=== PATIENT | male | born 1980 | race Caucasian/White ===

== ENCOUNTER → 2019-08-19 | Outpatient (CLI) | payer BC ==
[2019-08-19 11:23] LABS: BUN/CREATININE RATIO 12; CARBON DIOXIDE 25 MMOL/L (21-32); CHLORIDE 102 MMOL/L (98-107); CREATININE SERUM 1.08 MG/DL (0.60-1.30); GFR ESTIMATED > 60; GLUCOSE 107 MG/DL (70-105); POTASSIUM 4.5 MMOL/L (3.6-5.0); SODIUM 141 MMOL/L (135-145)
[2019-08-19 11:24] LABS: ALANINE AMINOTRANSFERASE 35 U/L (0-55); ALBUMIN 4.5 GM/DL (3.2-4.5); ALKALINE PHOSPHATASE 65 U/L (40-136); BILIRUBIN,TOTAL 0.6 MG/DL (0.1-1.0); CALCIUM 9.2 MG/DL (8.5-10.1); TOTAL PROTEIN 7.6 GM/DL (6.4-8.2)
[2019-08-19 14:19] LABS: CHOLESTEROL 240 MG/DL (< 200); HDL CHOLESTEROL 31 MG/DL (40-60); TRIGLYCERIDES 328 MG/DL (<150); VLDL CHOLESTEROL 66 MG/DL (5-40)
[2019-08-19 14:40] LABS: FREE T4 (FREE THYROXINE) 0.85 NG/DL (0.70-1.48)
== END ==
LOC: LAB FS 10:19
PROVIDERS: ATTEND Family Medicine
DX: Z00.00 Encounter for general adult medical examination without abnormal findings (principal)
CPT/HCPCS: 36415; 80053; 80061; 84439; 84443

== ENCOUNTER → 2020-10-11 | Outpatient (CLI) | payer BC ==
[2020-10-11 12:07] LABS: ALANINE AMINOTRANSFERASE 35 U/L (0-55); ALBUMIN 4.6 GM/DL (3.2-4.5); ALKALINE PHOSPHATASE 66 U/L (40-136); BILIRUBIN,TOTAL 0.3 MG/DL (0.1-1.0); BUN/CREATININE RATIO 16; CALCIUM 9.4 MG/DL (8.5-10.1); CARBON DIOXIDE 25 MMOL/L (21-32); CHLORIDE 102 MMOL/L (98-107); CREATININE SERUM 1.02 MG/DL (0.60-1.30); GFR ESTIMATED > 60; GLUCOSE 109 MG/DL (70-105); POTASSIUM 4.1 MMOL/L (3.6-5.0); SODIUM 139 MMOL/L (135-145); TOTAL PROTEIN 7.6 GM/DL (6.4-8.2)
[2020-10-11 15:08] LABS: TRIGLYCERIDES 461 MG/DL (<150); VLDL CHOLESTEROL 92 MG/DL (5-40)
[2020-10-11 15:13] LABS: CHOLESTEROL 235 MG/DL (< 200); HDL CHOLESTEROL 31 MG/DL (40-60)
== END ==
LOC: LAB FS 09:08
PROVIDERS: ATTEND Family Medicine
DX: Z00.00 Encounter for general adult medical examination without abnormal findings (principal)
CPT/HCPCS: 36415; 80053; 80061

== ENCOUNTER → 2020-10-11 | Outpatient (CLI) | payer SELFPAY ==
--- NOTE | 2020-10-11 11:55 | Diagnostic Imaging Report ---
EXAMINATION: CT calcium scoring without contrast. TECHNIQUE: Multiple contiguous axial images were obtained through the chest without the use of intravenous contrast for purposes of calcium scoring. All CT scans use one or more of the following dose optimizing techniques: automated exposure control, MA and/or KvP adjustment based on patient size and exam type or iterative reconstruction. HISTORY: Near syncope COMPARISON: None available. FINDINGS: The calculated coronary artery calcium score is 7.2, placing the patient between the 75th and 90th percentiles.. There is no edema or pneumonia. No pleural effusion. No pneumothorax. No suspicious nodules. Heart size is normal. No pericardial effusion. Aorta is normal in caliber. There is no axillary or supraclavicular lymphadenopathy. There is no mediastinal lymphadenopathy. Limited views of the upper abdomen are unremarkable. There are no suspicious osseus lesions. IMPRESSION: 1. Calculated coronary artery calcium score of 7.2, placing the patient between the 75th and 90th percentile for his age. Dictated by: Dictated on workstation # [id number]
== END ==
LOC: RAD FS 09:45
PROVIDERS: ATTEND Family Medicine
DX: R55 Syncope and collapse (principal)
CPT/HCPCS: 75571

== ENCOUNTER 2021-04-07 11:42 | Emergency (ER) | payer BC ==
[~2021-04-07] VITALS: Ht 175.2 cm; Wt 120.0 kg
--- NOTE | 2021-04-07 12:02 | ED Cough/URI ---
General Chief Complaint: COVID19 Suspect/Confirmed Stated Complaint: FEVER;SOB Source: patient, family Exam Limitations: no limitations History of Present Illness Date Seen by Provider: Apr 07, 2021 Time Seen by Provider: 11:47 Initial Comments 41-year-old male otherwise healthy coming in due to cough, shortness of breath, body aches, chills, headache all starting about 11 days ago. Has been taking intermittent ibuprofen and Tylenol with the last dose of Tylenol this morning. This takes the edge off the headache but is still present. Has been on azithromycin, steroids, vitamin D, ivermectin for the past several days after a telehealth appointment. The concern is for Covid, and he has had a negative at home test but has not had a PCR test. He is not vaccinated and has not had Covid that he knows of prior to this. Oxygen saturation at home was 88 to 92% at rest. Denies any previous cardiac history, pulmonary history, does not smoke, or any other concerns. Allergies and Home Medications Allergies Coded Allergies: No Known Drug Allergies (Unverified , 04/07/21) Patient Home Medication List Home Medication List Reviewed: Yes Review of Systems Review of Systems Constitutional: chills, fever EENTM: No blurred vision Respiratory: cough, dyspnea on exertion; No hemoptysis; short of breath Cardiovascular: No chest pain, No syncope Gastrointestinal: No abdominal pain; diarrhea, nausea Genitourinary: no symptoms reported Musculoskeletal: no symptoms reported Skin: no symptoms reported Psychiatric/Neurological: Headache Hematologic/Lymphatic: No Symptoms Reported Immunological/Allergic: no symptoms reported All Other Systems Reviewed Negative Unless Noted: Yes Past Swnawjc-Obreed-Akatwv Hx Patient Social History Tobacco Use?: Yes (chewing tobacco) Substance use?: No Past Medical History Surgeries: Yes Vasectomy Physical Exam Vital Signs - First Documented 04/07/21 11:50 Temp 36.6 Pulse 99 Resp 18 B/P (MAP) 152/102 (119) Pulse Ox 97 O2 Delivery Room Air Capillary Refill : Height: '" Weight: lbs. oz. kg; BMI Method: General Appearance: WD/WN, no apparent distress HEENT: PERRL/EOMI, normal ENT inspection, pharynx normal Neck: non-tender, full range of motion, supple, normal inspection Respiratory: chest non-tender, no accessory muscle use, rales, other (slightly tachypneic) Cardiovascular: no edema, no murmur, tachycardia Gastrointestinal: normal bowel sounds, non tender, soft; No distended, No guarding, No rebound Extremities: normal range of motion, non-tender, normal inspection, no pedal edema, no calf tenderness, normal capillary refill Neurologic/Psychiatric: no motor/sensory deficits, alert, normal mood/affect Skin: normal color, warm/dry Lymphatic: no adenopathy Progress/Results/Core Measures Suspected Sepsis SIRS Temperature: Pulse: Respiratory Rate: Laboratory Tests 04/07/21 12:00: White Blood Count 7.4 Blood Pressure / Mean: Laboratory Tests 04/07/21 12:00: Creatinine 1.02, INR Comment 1.0, Platelet Count 320, Total Bilirubin 1.2H Results/Orders Lab Results Laboratory Tests Test 04/07/21 12:00 Range/Units White Blood Count 7.4 4.3-11.0 10^3/uL Red Blood Count 4.99 4.30-5.52 10^6/uL Hemoglobin 14.2 13.3-17.7 g/dL Hematocrit 41 40-54 % Mean Corpuscular Volume 81 80-99 fL Mean Corpuscular Hemoglobin 28 25-34 pg Mean Corpuscular Hemoglobin Concent 35 32-36 g/dL Red Cell Distribution Width 12.6 10.0-14.5 % Platelet Count 320 130-400 10^3/uL Mean Platelet Volume 9.7 9.0-12.2 fL Immature Granulocyte % (Auto) 0 % Neutrophils (%) (Auto) 87 H 42-75 % Lymphocytes (%) (Auto) 8 L 12-44 % Monocytes (%) (Auto) 5 0-12 % Eosinophils (%) (Auto) 0 0-10 % Basophils (%) (Auto) 0 0-10 % Neutrophils # (Auto) 6.4 1.8-7.8 X 10^3 Lymphocytes # (Auto) 0.6 L 1.0-4.0 X 10^3 Monocytes # (Auto) 0.3 0.0-1.0 X 10^3 Eosinophils # (Auto) 0.0 0.0-0.3 10^3/uL Basophils # (Auto) 0.0 0.0-0.1 10^3/uL Immature Granulocyte # (Auto) 0.0 0.0-0.1 10^3/uL Prothrombin Time 13.3 12.2-14.7 SEC INR Comment 1.0 0.8-1.4 Activated Partial Thromboplast Time 26 24-35 SEC D-Dimer 0.59 H 0.00-0.49 UG/ML Sodium Level 133 L 135-145 MMOL/L Potassium Level 4.0 3.6-5.0 MMOL/L Chloride Level 92 L 98-107 MMOL/L Carbon Dioxide Level 28 21-32 MMOL/L Anion Gap 13 5-14 MMOL/L Blood Urea Nitrogen 19 H 7-18 MG/DL Creatinine 1.02 0.60-1.30 MG/DL Estimat Glomerular Filtration Rate 80 BUN/Creatinine Ratio 19 Glucose Level 140 H 70-105 MG/DL Calcium Level 9.1 8.5-10.1 MG/DL Corrected Calcium 9.1 8.5-10.1 MG/DL Total Bilirubin 1.2 H 0.1-1.0 MG/DL Aspartate Amino Transf (AST/SGOT) 67 H 5-34 U/L Alanine Aminotransferase (ALT/SGPT) 80 H 0-55 U/L Alkaline Phosphatase 67 40-136 U/L Troponin I < 0.30 <0.30 NG/ML Total Protein 7.6 6.4-8.2 GM/DL Albumin 4.0 3.2-4.5 GM/DL Influenza Type A Antigen NEGATIVE NEGATIVE Influenza Type B Antigen NEGATIVE NEGATIVE My Orders Orders - CRICKET JAMA MD Ct Angio Chest W (04/07/21 11:58) Ct Head Wo (04/07/21 11:58) Cbc With Automated Diff (04/07/21 11:58) Comprehensive Metabolic Panel (04/07/21 11:58) Protime With Inr (04/07/21 11:58) Partial Thromboplastin Time (04/07/21 11:58) Troponin I Fs (04/07/21 11:58) Influenza A & B Antigens (04/07/21 11:58) Ed Iv/Invasive Line Start (04/07/21 11:58) Ekg Tracing (04/07/21 11:58) O2 (04/07/21 11:58) Monitor-Rhythm Ecg Trace Only (04/07/21 11:58) Fibrin Degradation Products (04/07/21 11:58) Covid 19 Inhouse Test (04/07/21 11:58) Ondansetron Injection (Zofran Injectio (04/07/21 12:15) Ketorolac Injection (Toradol Injection) (04/07/21 12:15) Lactated Ringers (Lr 1000 Ml Iv Solution (04/07/21 12:15) Chest 1 View Ap/Pa Only (04/07/21 12:06) BNP (04/07/21 12:00) Iohexol Injection (Omnipaque 350 Mg/Ml 1 (04/07/21 13:00) Received Contrast (Hold Metformin- Contr (04/07/21 13:00) Ns (Ivpb) (Sodium Chloride 0.9% Ivpb Bag (04/07/21 13:00) Manual Differential (04/07/21 12:00) Medications Given in ED Current Medications Medications Dose Ordered Sig/Abhay Route Start Time Stop Time Status Last Admin Dose Admin Iohexol 100 ml ONCE ONCE IV 04/07/21 13:00 04/07/21 13:01 DC 04/07/21 13:01 85 ML Ketorolac Tromethamine 15 mg ONCE ONCE IVP 04/07/21 12:15 04/07/21 12:16 DC 04/07/21 12:10 15 MG Ondansetron HCl 4 mg ONCE ONCE IVP 04/07/21 12:15 04/07/21 12:16 DC 04/07/21 12:10 4 MG Sodium Chloride 100 ml ONCE ONCE IV 04/07/21 13:00 04/07/21 13:01 DC 04/07/21 13:01 100 ML Vital Signs/I&O 04/07/21 04/07/21 11:50 11:50 Temp 36.6 Pulse 99 Resp 18 B/P (MAP) 152/102 (119) Pulse Ox 97 O2 Delivery Room Air Capillary Refill : Progress Note : Progress Note 41-year-old male coming in due to multiple infectious symptoms including cough, shortness of breath, headache, body aches. His oxygen stayed between 92 to 98% at rest. I personally ambulated the patient for greater than 1 minute and his oxygen stayed above 90% during that time. Portable chest x-ray with multifocal patchy opacities concerning for infection versus pulmonary edema. CTA chest with groundglass opacities more consistent with infection. No blood clots seen in no local focal area of consolidation that would be more concerning for bacterial pneumonia. Labs otherwise significant for negative troponin, relative lymphopenia, normal creatinine, mild transaminitis. Biggest concern would be for Covid. Test has been sent and is pending at this time. Given he is not hypoxic, I believe he is stable for discharge with outpatient follow-up. We will send him home with strict return precautions. ECG Initial ECG Impression Date: Apr 07, 2021 Initial ECG Impression Time: 12:04 Initial ECG Rate: 89 Initial ECG Rhythm: Normal Sinus Comment Narrow QRS, normal axis, no significant ST changes or T wave abnormalities, LVH Diagnostic Imaging Diagonstic Imaging: Xray (chest), CT (head and CTA chest) Comments [facility] [place], [place] NAME: JENNIEANIA Johan [facility] REC#: [id number] PT STATUS: REG ER : 1980 PHYSICIAN: CRICKET JAMA MD ADMIT DATE: 04/07/21/ER FS Draft Date of Exam:04/07/21 CHEST 1 VIEW AP/PA ONLY HISTORY: Shortness of breath, cough. COMPARISON: None. TECHNIQUE: Frontal view of the chest. FINDINGS: Lung volumes are mildly low. There are bilateral perihilar opacities and left basilar airspace opacities. There is no significant pleural effusion or pneumothorax. The cardiac silhouette is normal in size. IMPRESSION: 1. Bilateral perihilar and left basilar airspace opacities, may be due to edema or infection. Dictated on workstation # [id number] Dict: 04/07/21 1237 Trans: 04/07/21 1239 [id number] Interpreted by: RODRIGO LOVE MD Electronically signed by: [facility] [place], [place] NAME: JENNIEANIA Johan [facility] REC#: [id number] PT STATUS: REG ER : 1980 PHYSICIAN: CRICKET JAMA MD ADMIT DATE: 04/07/21/ER FS Draft Date of Exam:04/07/21 CT HEAD WO PROCEDURE: CT head without contrast. TECHNIQUE: Multiple contiguous axial images were obtained through the brain without the use of intravenous contrast. Auto Exposure Controls were utilized during the CT exam to meet ALARA standards for radiation dose reduction. INDICATION: Headache, tachycardia, shortness of breath, hypoxia COMPARISON: None FINDINGS: The ventricles and cortical sulci are age-appropriate. There is no midline shift or mass effect. No acute intracranial hemorrhage is seen. There is no CT evidence of acute territorial ischemia. The calvarium appears intact. There is mucosal thickening and a fluid level in the right maxillary sinus. IMPRESSION: 1. No acute intracranial hemorrhage or CT evidence of acute territorial ischemia. 2. Findings of right maxillary sinusitis. Dictated on workstation # [id number] Dict: 04/07/21 1307 Trans: 04/07/21 1310 [facility] [id number] Interpreted by: RODRIGO LOVE MD Electronically signed by: [facility]. [place], [place] NAME: ANIA SCHNEIDER [facility] REC#: [id number] PT STATUS: REG ER : 1980 PHYSICIAN: CRICKET JAMA MD ADMIT DATE: 04/07/21/ER FS Draft Date of Exam:04/07/21 CT ANGIO CHEST W PROCEDURE: CT angiography of the chest with contrast. TECHNIQUE: Multiple contiguous axial images were obtained through the chest after uneventful bolus administration of intravenous contrast. 3D reconstructed CTA MIP acquisitions were also performed. Auto Exposure Controls were utilized during the CT exam to meet ALARA standards for radiation dose reduction. INDICATION: Headache, shortness of breath, tachycardia, hypoxia, Covid symptoms. COMPARISON: None. FINDINGS: The pulmonary arteries are diagnostic to the proximal segmental level. There is motion artifact which results in suboptimal evaluation. No filling defects are seen to indicate a pulmonary embolus. There is no evidence of right heart strain. There is no pericardial effusion. There is no mediastinal adenopathy. There is no axillary adenopathy. There are a few mildly prominent hilar lymph nodes which are likely reactive. Patchy groundglass and airspace opacities are seen scattered throughout the lungs bilaterally. There is no pleural effusion or pneumothorax. No central endobronchial lesions are seen. There are mild degenerative changes in the spine. The imaged portions of the upper abdomen demonstrate no acute abnormality. A small splenule is noted. IMPRESSION: 1. No pulmonary embolus. 2. Multifocal groundglass and airspace opacities, consistent with infection. Dictated on workstation # [id number] Dict: 04/07/21 1308 Trans: 04/07/21 1313 [id number] Interpreted by: RODRIGO LOVE MD Electronically signed by: Departure Impression Primary Impression: Person under investigation for COVID-19 Additional Impression: Dyspnea Qualified Codes: R06.02 - Shortness of breath Disposition: HOME, SELF-CARE Condition: Stable Departure-Patient Inst. Decision time for Depature: 13:22 Referrals: HERLINDA DURAN MD (PCP/Family) Primary Care Physician Patient Instructions: COVID-19 ED Add. Discharge Instructions: You were seen in the emergency department due to feeling short of breath, having body aches, cough, and generally not feeling well. Fortunately your vitals have remained normal while in the emergency department being monitored (oxygen stayed above 90% even when moving around the room). We did a CT scan of your chest which fortunately was negative for any blood clot, but it does look like you have an infection from COVID in your lungs. We have sent in an inhaled steroid to your pharmacy. This does not look like a bacterial infection at this time and I do not believe another round of antibiotics would be helpful. I would fi shira your Z-Felix that you have been taking. If you begin feeling more short of breath, your oxygen gets in the 80s and stays in the 80s while at home, or have any other concerns then I would come back to the ER. Scripts Budesonide (Pulmicort Flexhaler) 180 Mcg Aer.pow.ba 360 MCG IH BID for 7 Days, #1 UNIT Prov: CRICKET JAMA MD 04/07/21 CRICKET JAMA MD Apr 07, 2021 12:02
[2021-04-07] MEDS ORDERED: LACTATED RINGERS 1,000 ML IV SCH (12:15)
[2021-04-07] MEDS ORDERED: KETOROLAC 30 MG/ML VIAL IVP ONE (12:15)
[2021-04-07] MEDS ORDERED: ONDANSETRON 4 MG/2 ML (SDV) Z0FRAN IVP ONE (12:15)
[2021-04-07 12:33] LABS: BASOPHILS % (AUTO) 0 % (0-10); EOSINOPHILS % (AUTO) 0 % (0-10); HEMATOCRIT 41 % (40-54); HEMOGLOBIN 14.2 g/dL (13.3-17.7); LYMPHOCYTES # (AUTO) 0.6 X 10^3 (1.0-4.0); LYMPHOCYTES % (AUTO) 8 % (12-44); MEAN CORPUSCULAR HEMOGLOBIN 28 pg (25-34); MEAN CORPUSCULAR HGB CONC 35 g/dL (32-36); MEAN CORPUSCULAR VOLUME 81 fL (80-99); MEAN PLATELET VOLUME 9.7 fL (9.0-12.2); MONOCYTES # (AUTO) 0.3 X 10^3 (0.0-1.0); MONOCYTES % (AUTO) 5 % (0-12); NEUTROPHILS # (AUTO) 6.4 X 10^3 (1.8-7.8); NEUTROPHILS % (AUTO) 87 % (42-75); PLATELET COUNT 320 10^3/uL (130-400); WHITE BLOOD COUNT 7.4 10^3/uL (4.3-11.0)
--- NOTE | 2021-04-07 12:40 | Diagnostic Imaging Report ---
HISTORY: Shortness of breath, cough. COMPARISON: None. TECHNIQUE: Frontal view of the chest. FINDINGS: Lung volumes are mildly low. There are bilateral perihilar opacities and left basilar airspace opacities. There is no significant pleural effusion or pneumothorax. The cardiac silhouette is normal in size. IMPRESSION: 1. Bilateral perihilar and left basilar airspace opacities, may be due to edema or infection. Dictated by: Dictated on workstation # [id number]
[2021-04-07 12:46] LABS: FIBRIN DEGRADATION PRODUCTS 0.59 UG/ML (0.00-0.49); PROTHROMBIN TIME PATIENT 13.3 SEC (12.2-14.7)
[2021-04-07 12:48] LABS: ALANINE AMINOTRANSFERASE 80 U/L (0-55); ALKALINE PHOSPHATASE 67 U/L (40-136); BILIRUBIN,TOTAL 1.2 MG/DL (0.1-1.0); BUN/CREATININE RATIO 19; CALCIUM 9.1 MG/DL (8.5-10.1); CARBON DIOXIDE 28 MMOL/L (21-32); CHLORIDE 92 MMOL/L (98-107); CREATININE SERUM 1.02 MG/DL (0.60-1.30); GFR ESTIMATED 80; GLUCOSE 140 MG/DL (70-105); SODIUM 133 MMOL/L (135-145); TOTAL PROTEIN 7.6 GM/DL (6.4-8.2)
[2021-04-07] MEDS ORDERED: IOHEXOL 350 MG/ML 100 ML (OMNIPAQUE 350) VIAL IV ONE (13:00)
[2021-04-07] MEDS ORDERED: HOLD METFORMIN - RECEIVED CONTRAST 20 ML VIAL IV SCH (13:00)
[2021-04-07] MEDS ORDERED: NS 100 ML (IVPB) BAG IV ONE (13:00)
--- NOTE | 2021-04-07 13:10 | Diagnostic Imaging Report ---
PROCEDURE: CT head without contrast. TECHNIQUE: Multiple contiguous axial images were obtained through the brain without the use of intravenous contrast. Auto Exposure Controls were utilized during the CT exam to meet ALARA standards for radiation dose reduction. INDICATION: Headache, tachycardia, shortness of breath, hypoxia COMPARISON: None FINDINGS: The ventricles and cortical sulci are age-appropriate. There is no midline shift or mass effect. No acute intracranial hemorrhage is seen. There is no CT evidence of acute territorial ischemia. The calvarium appears intact. There is mucosal thickening and a fluid level in the right maxillary sinus. IMPRESSION: 1. No acute intracranial hemorrhage or CT evidence of acute territorial ischemia. 2. Findings of right maxillary sinusitis. Dictated by: Dictated on workstation # [id number]
--- NOTE | 2021-04-07 13:14 | Diagnostic Imaging Report ---
PROCEDURE: CT angiography of the chest with contrast. TECHNIQUE: Multiple contiguous axial images were obtained through the chest after uneventful bolus administration of intravenous contrast. 3D reconstructed CTA MIP acquisitions were also performed. Auto Exposure Controls were utilized during the CT exam to meet ALARA standards for radiation dose reduction. INDICATION: Headache, shortness of breath, tachycardia, hypoxia, Covid symptoms. COMPARISON: None. FINDINGS: The pulmonary arteries are diagnostic to the proximal segmental level. There is motion artifact which results in suboptimal evaluation. No filling defects are seen to indicate a pulmonary embolus. There is no evidence of right heart strain. There is no pericardial effusion. There is no mediastinal adenopathy. There is no axillary adenopathy. There are a few mildly prominent hilar lymph nodes which are likely reactive. Patchy groundglass and airspace opacities are seen scattered throughout the lungs bilaterally. There is no pleural effusion or pneumothorax. No central endobronchial lesions are seen. There are mild degenerative changes in the spine. The imaged portions of the upper abdomen demonstrate no acute abnormality. A small splenule is noted. IMPRESSION: 1. No pulmonary embolus. 2. Multifocal groundglass and airspace opacities, consistent with infection. Dictated by: Dictated on workstation # [id number]
[2021-04-07 13:23] LABS: ATYPICAL LYMPHOCYTES 2 %; BAND NEUTROPHILS 7 %; LYMPHOCYTES % (MANUAL) 5 %; MONOCYTES % (MANUAL) 7 %; NEUTROPHILS % (MANUAL) 79 %; RBC MORPH NORMAL
[2021-04-07] MEDS ORDERED: BUDE180A IH (13:37)
[2021-04-07 13:44] VITALS: BP 144/78
== END 2021-04-07 13:45 | disposition home or self-care (01) ==
LOC: EDUNIT# 11:42 → ER FS 11:43
DX: U07.1 COVID-19 (principal); R06.00 Dyspnea, unspecified; R00.0 Tachycardia, unspecified; Z72.0 Tobacco use
CPT/HCPCS: 36415; 70450; 71045; 71275; 80053; 83880; 84484; 85007; 85025; 85027; 85379; 85610; 85730; 87636; 87804; 93005; 93041

== ENCOUNTER 2021-04-08 08:51 | Inpatient (IN) | payer BC ==
[~2021-04-08] VITALS: Ht 175 cm; Wt 106.9 kg
[~2021-04-08 08:51] MED LIST: BUDE180A IH
[2021-04-08 09:17] LABS: BASOPHILS % (AUTO) 0 % (0-10); EOSINOPHILS % (AUTO) 0 % (0-10); HEMATOCRIT 39 % (40-54); HEMOGLOBIN 13.6 g/dL (13.3-17.7); LYMPHOCYTES # (AUTO) 0.5 10^3/uL (1.0-4.0); LYMPHOCYTES % (AUTO) 6 % (12-44); MEAN CORPUSCULAR HEMOGLOBIN 29 pg (25-34); MEAN CORPUSCULAR HGB CONC 35 g/dL (32-36); MEAN CORPUSCULAR VOLUME 83 fL (80-99); MEAN PLATELET VOLUME 9.7 fL (9.0-12.2); MONOCYTES # (AUTO) 0.2 10^3/uL (0.0-1.0); MONOCYTES % (AUTO) 2 % (0-12); NEUTROPHILS # (AUTO) 7.8 10^3/uL (1.8-7.8); NEUTROPHILS % (AUTO) 91 % (42-75); PLATELET COUNT 331 10^3/uL (130-400); WHITE BLOOD COUNT 8.5 10^3/uL (4.3-11.0)
--- NOTE | 2021-04-08 09:17 | ED Respiratory ---
General Chief Complaint: COVID19 Suspect/Confirmed Stated Complaint: COVID + Source: patient, family Exam Limitations: no limitations History of Present Illness Date Seen by Provider: Apr 08, 2021 Time Seen by Provider: 09:00 Initial Comments Patient is a 41-year-old male who presents to the emergency department today with a chief complaint of worsening shortness of breath and hypoxemia. Patient was diagnosed with Covid pneumonia yesterday. He is about 13 days into his course of symptoms. Was documented not hypoxic throughout his ED visit at [facility] yesterday, even ambulated and did not demonstrate any hypoxia below 90%. His who is an conveyor technician at [facility] put him on 3 L of oxygen to come to the hospital today, when he got into the room he was noted to be 64% on room air with good pleth. He is profoundly short of breath with even the slightest activity. He did have CTA of his chest to rule out pulmonary embolism yesterday which was negative but demonstrated bilateral groundglass opacities consistent with Covid pneumonia. He recently finished a steroid Dosepak as well as a Z- Felix, he has been on standard vitamins as well as ivermectin. His last dose of ivermectin was due to be given today. His cough is nonproductive. He cannot really comment on whether or not he has had fever. No diarrhea. Feels very worn out. No other chronic medical conditions, he is not diabetic or hypertensive, does not smoke. He is not Covid vaccinated. All other review of systems reviewed and negative except as stated. Timing/Duration: getting worse Severity: severe Prior Episodes/Possible Cause: illness exposure Modifying Factors: Worse With Activity, Worse With Coughing Associated Symptoms: cough, headache, lightheadedness, muscle aches Allergies and Home Medications Allergies Uncoded Allergies: florescein stain (Allergy, Severe, 04/08/21) Patient Home Medication List Home Medication List Reviewed: Yes Ascorbic Acid (Vitamin C) 500 Mg Capsule, 500 MG PO DAILY, (Reported) Entered as Reported by: CLAY GROSSMAN on 04/09/211517 Last Action: Reviewed Aspirin (Aspirin EC) 81 Mg Tablet., 81 MG PO DAILY, (Reported) Entered as Reported by: CLAY GROSSMAN on 04/09/211517 Last Action: Reviewed Budesonide (Pulmicort Flexhaler) 180 Mcg Aer.pow.ba, 1-2 PUFF IH BID PRN for SHORTNESS OF BREATH, (Reported) Entered as Reported by: CLAY GROSSMAN on 04/09/211517 Last Action: Reviewed Cholecalciferol (Vitamin D3) (Vitamin D3) 25 Mcg Tablet, 25 MCG PO DAILY, (Reported) Entered as Reported by: CLAY GROSSMAN on 04/09/211517 Last Action: Reviewed Ibuprofen (Ibuprofen) 200 Mg Tablet, 400-600 MG PO Q8H PRN for PAIN-MILD (1-4), (Reported) Entered as Reported by: CLAY GROSSMAN on 04/09/211517 Last Action: Reviewed Discontinued Medications Budesonide (Pulmicort Flexhaler) 180 Mcg Aer.joshua, 360 MCG IH BID Discontinued Reason: No Longer Taking Prescribed by: CRICKET JAMA on 04/07/21 1337 Last Action: Discontinued Review of Systems Review of Systems Constitutional: see HPI EENTM: no symptoms reported Respiratory: cough, dyspnea on exertion, short of breath Cardiovascular: no symptoms reported Gastrointestinal: no symptoms reported Genitourinary: no symptoms reported Musculoskeletal: no symptoms reported Skin: no symptoms reported Psychiatric/Neurological: No Symptoms Reported All Other Systems Reviewed Negative Unless Noted: Yes Past Xqshlam-Pgrnfw-Yanftj Hx Immunizations Up To Date First/Initial COVID19 Vaccinat: none Past Medical History Surgeries: Yes Vasectomy Physical Exam Vital Signs - First Documented 04/08/21 08:51 Temp 37.7 Pulse 93 Resp 28 B/P (MAP) 175/107 (129) Pulse Ox 64 O2 Delivery Room Air O2 Flow Rate 10.00 Capillary Refill : Height: '" Weight: lbs. oz. kg; 39.00 BMI Method: General Appearance: WD/WN, moderate distress Eyes: Bilateral Eye Normal Inspection, Bilateral Eye PERRL, Bilateral Eye EOMI HEENT: PERRL/EOMI, normal ENT inspection Neck: full range of motion Respiratory: respiratory distress, crackles (Bilateral mid to lower lung stallings), other (tachypneic; short shallow respirations) Cardiovascular: regular rate, rhythm, no murmur Gastrointestinal: non tender, soft Extremities: normal range of motion, non-tender, normal inspection, no pedal edema, no calf tenderness Neurologic/Psychiatric: alert, normal mood/affect, oriented x 3 Skin: normal color, warm/dry Focused Exam Lactate Level 04/08/21 09:00: Lactic Acid Level 2.12*H Lactic Acid Level Laboratory Tests Test 04/08/21 09:00 Lactic Acid Level 2.12 MMOL/L (0.50-2.00) *H Progress/Results/Core Measures Suspected Sepsis SIRS Temperature: Pulse: Respiratory Rate: Laboratory Tests 04/08/21 09:00: White Blood Count 8.5 Blood Pressure / Mean: 04/08/21 09:00: Lactic Acid Level 2.12*H Laboratory Tests 04/08/21 09:00: Creatinine 0.89, INR Comment 1.0, Platelet Count 331, Total Bilirubin 1.0 Results/Orders Lab Results Laboratory Tests Test 04/08/21 09:00 Range/Units White Blood Count 8.5 4.3-11.0 10^3/uL Red Blood Count 4.75 4.30-5.52 10^6/uL Hemoglobin 13.6 13.3-17.7 g/dL Hematocrit 39 L 40-54 % Mean Corpuscular Volume 83 80-99 fL Mean Corpuscular Hemoglobin 29 25-34 pg Mean Corpuscular Hemoglobin Concent 35 32-36 g/dL Red Cell Distribution Width 12.4 10.0-14.5 % Platelet Count 331 130-400 10^3/uL Mean Platelet Volume 9.7 9.0-12.2 fL Immature Granulocyte % (Auto) 1 % Neutrophils (%) (Auto) 91 H 42-75 % Lymphocytes (%) (Auto) 6 L 12-44 % Monocytes (%) (Auto) 2 0-12 % Eosinophils (%) (Auto) 0 0-10 % Basophils (%) (Auto) 0 0-10 % Neutrophils # (Auto) 7.8 1.8-7.8 10^3/uL Lymphocytes # (Auto) 0.5 L 1.0-4.0 10^3/uL Monocytes # (Auto) 0.2 0.0-1.0 10^3/uL Eosinophils # (Auto) 0.0 0.0-0.3 10^3/uL Basophils # (Auto) 0.0 0.0-0.1 10^3/uL Immature Granulocyte # (Auto) 0.1 0.0-0.1 10^3/uL Neutrophils % (Manual) 86 % Lymphocytes % (Manual) 7 % Monocytes % (Manual) 3 % Band Neutrophils 4 % Blood Morphology Comment NORMAL Prothrombin Time 13.7 12.2-14.7 SEC INR Comment 1.0 0.8-1.4 Activated Partial Thromboplast Time 30 24-35 SEC Sodium Level 132 L 135-145 MMOL/L Potassium Level 3.7 3.6-5.0 MMOL/L Chloride Level 94 L 98-107 MMOL/L Carbon Dioxide Level 25 21-32 MMOL/L Anion Gap 13 5-14 MMOL/L Blood Urea Nitrogen 15 7-18 MG/DL Creatinine 0.89 0.60-1.30 MG/DL Estimat Glomerular Filtration Rate 94 BUN/Creatinine Ratio 17 Glucose Level 165 H 70-105 MG/DL Lactic Acid Level 2.12 *H 0.50-2.00 MMOL/L Calcium Level 8.7 8.5-10.1 MG/DL Corrected Calcium 8.9 8.5-10.1 MG/DL Total Bilirubin 1.0 0.1-1.0 MG/DL Aspartate Amino Transf (AST/SGOT) 47 H 5-34 U/L Alanine Aminotransferase (ALT/SGPT) 66 H 0-55 U/L Alkaline Phosphatase 55 40-136 U/L C-Reactive Protein High Sensitivity 18.60 H 0.00-0.50 MG/DL Total Protein 7.3 6.4-8.2 GM/DL Albumin 3.7 3.2-4.5 GM/DL Procalcitonin 0.62 H <0.10 NG/ML Micro Results Microbiology 04/08/21 Blood Culture - Preliminary, Resulted No growth My Orders Orders - ART QUILES MD Cbc With Automated Diff (04/08/21 09:10) Comprehensive Metabolic Panel (04/08/21 09:10) Blood Culture (04/08/21 09:10) Sputum Culture (04/08/21 09:10) Protime With Inr (04/08/21 09:10) Partial Thromboplastin Time (04/08/21 09:10) Chest 1 View, Ap/Pa Only (04/08/21 09:10) Ed Iv/Invasive Line Start (04/08/21 09:10) Ed Iv/Invasive Line Start (04/08/21 09:10) Vital Signs Adult Sepsis Patie Q15M (04/08/21 09:10) O2 (04/08/21 09:10) Remove Rings In Anticipation O (04/08/21 09:10) Lactic Acid Analyzer (04/08/21 09:10) Hs C Reactive Protein (04/08/21 09:10) Procalcitonin (Pct) (04/08/21 09:10) Manual Differential (04/08/21 09:00) Vital Signs/I&O 04/08/21 04/08/21 08:51 08:51 Temp 37.7 Pulse 93 Resp 28 B/P (MAP) 175/107 (129) Pulse Ox 64 O2 Delivery Room Air OxyMask O2 Flow Rate 10.00 Capillary Refill : Progress Note #1: Time: 09:52 Progress Note Discussed hospitalization with the patient, will need ICU care for profound hypoxemia and Covid pneumonia. I discussed with the patient and his the use of Actemra for the anti-inflammatory properties and EUA treatment of Covid pneumonia. Advised patient of the risks of infusion to include allergic reaction. Benefits to hopefully prevent intubation. He is agreeable and states "what ever will help me get better". I discussed the case with Dr. Trivedi on for the hospitalist service. She is agreeable to a dose of Actemra. ICU bed being requested. Patient is being placed on Vapotherm. Progress Note #2: Time: 10:30 Progress Note Rechecked patient, respirations seem to be a little bit more even and unlabored. Satting 94% on Vapotherm at 25 L/60%. Reviewed labs with patient and family as well as chest x-ray findings. Patient has a bed waiting in the ICU. Actemra is being hung now. ECG Initial ECG Impression Date: Apr 08, 2021 Diagnostic Imaging Diagonstic Imaging: Xray Plain Films/CT/US/NM/MRI: chest Comments [facility]. [place], [place] NAME: JENNIEANIA Johan [facility] REC#: [id number] PT STATUS: REG ER : 1980 PHYSICIAN: ART QUILES MD ADMIT DATE: 04/08/21/ER Draft Date of Exam:04/08/21 CHEST 1 VIEW, AP/PA ONLY INDICATION: Sepsis, Covid positive Frontal chest obtained at 0935 a.m. and compared to 04/07/2021. Heart and mediastinal silhouette appear unremarkable. There are very low lung volumes. There is extensive worsening of infiltrate throughout both lungs compared to the prior study. There is no pneumothorax or pleural fluid. IMPRESSION: Extensive worsening of bilateral infiltrates compared to the prior study, findings are compatible with worsening pneumonia. There is very poor inspiration. Dictated on workstation # [id number] Dict: 04/08/21 0958 Trans: 04/08/21 1002 [facility] [id number] Interpreted by: CECY QUINATNILLA MD Electronically signed by: Critical Care Note Critical Care Start Time: 09:00 Stop Time: 09:54 Total Time (minutes) 35 minutes critical care time in the evaluation and management of this patient with hypoxemia. Time includes management with supplemental oxygen, placement on Vapotherm, review of medical record, discussion with family. Also discussion with admitting provider Departure Communication (Admissions) Time/Spoke to Admitting Phy: 09:[address] Trivedi who accepts the patient to the ICU Impression Primary Impression: Respiratory failure Qualified Codes: J96.01 - Acute respiratory failure with hypoxia Additional Impression: Pneumonia due to COVID-19 virus Disposition: ADMITTED INPATIENT Condition: Critical Admissions Decision to Admit Reason: Admit from ER (General) Decision to Admit/Date: Apr 08, 2021 Time/Decision to Admit Time: 09:54 Departure-Patient Inst. Referrals: HERLINDA DURAN MD (PCP/Family) Primary Care Physician ART QUILES MD Apr 08, 2021 09:17
[2021-04-08 09:31] LABS: PROTHROMBIN TIME PATIENT 13.7 SEC (12.2-14.7)
[2021-04-08 09:41] LABS: ALBUMIN 3.7 GM/DL (3.2-4.5); CALCIUM 8.7 MG/DL (8.5-10.1); CREATININE SERUM 0.89 MG/DL (0.60-1.30); POTASSIUM 3.7 MMOL/L (3.6-5.0); TOTAL PROTEIN 7.3 GM/DL (6.4-8.2)
[2021-04-08 09:45] LABS: BAND NEUTROPHILS 4 %; LYMPHOCYTES % (MANUAL) 7 %; MONOCYTES % (MANUAL) 3 %; NEUTROPHILS % (MANUAL) 86 %; RBC MORPH NORMAL
[2021-04-08] MEDS ORDERED: TOCILIZUMAB INJECTION (NON-FOR 800 MG in NS (IVPB) 60 ML IV ONE (10:00)
[2021-04-08] MEDS ORDERED: NS IV 1000 ML 1,000 ML IV SCH (10:00)
[2021-04-08] MEDS ORDERED: TOCILIZUMAB INJECTION (NON-FOR 800 MG in NS (IVPB) 60 ML IV NR (10:00)
--- NOTE | 2021-04-08 10:02 | Diagnostic Imaging Report ---
INDICATION: Sepsis, Covid positive Frontal chest obtained at 0935 a.m. and compared to 04/07/2021. Heart and mediastinal silhouette appear unremarkable. There are very low lung volumes. There is extensive worsening of infiltrate throughout both lungs compared to the prior study. There is no pneumothorax or pleural fluid. IMPRESSION: Extensive worsening of bilateral infiltrates compared to the prior study, findings are compatible with worsening pneumonia. There is very poor inspiration. Dictated by: Dictated on workstation # [id number]
[2021-04-08] MEDS: NS IV 1000 ML 1,000 ML IV SCH ×2 (11:27→21:50)
[2021-04-08] MEDS ORDERED: ACETAMINOPHEN 325 MG TABLET PO PRN (11:30)
--- NOTE | 2021-04-08 11:39 | History & Physical-Hospitalist ---
History of Present Illness HPI/Chief Complaint Patient is a 41-year-old male who presented to the emergency department due to shortness of breath and hypoxia. He reports feeling poorly for at least 10 days and was seen in the emergency department yesterday for presumed Covid. He had been being treated by a nurse practitioner in [place] hometown with ivermectin, azithromycin, Medrol Dosepak, and multiple vitamins. Despite this he continued to worsen and was seen in the emergency department yesterday. He was not hypoxic and had no admission criteria so was discharged home with an inhaler. He continued to worsen and was hypoxic to the 60s on arrival to the ER. He was placed on an oxygen mask and then switched to Vapotherm due to refractory hypoxia. He has been admitted to the ICU for further care. He complains of fevers, myalgias, cough, sputum production, loss of taste and smell, nausea. He is unvaccinated against COVID19. Source: patient Date Seen 04/08/21 Time Seen by a Provider: 11:39 Attending Physician Arminda Trivedi MD PCP Herlinda Duran MD Referring Physician Date of Admission Apr 08, 2021 at 09:16 Home Medications & Allergies Home Medications Reviewed patient Home Medication Reconciliation performed by pharmacy medication reconciliations physical science technician and/or nursing. Patients Allergies have been reviewed. Allergies Allergies Uncoded Allergies florescein stain ( Allergy, Severe, 04/08/21) Past Adhnatd-Kgbrre-Txlbwq Hx Patient Social History Marrital Status: Tobacco Use?: No Smoking Status: Never a Smoker Smokeless type used: Chew Smokeless Tobacco Frequency: Current Everyday User Use of E-Cig and/or Vaping dev: No Substance use?: No Alcohol Use?: No Pt feels they are or have been: No Immunizations Up To Date First/Initial COVID19 Vaccinat: none Tetanus Booster (TDap): Unknown Hepatitis A: No Hepatitis B: No Current Status Advance Directives: No Communicates: Verbally Primary Language: Occitan Preferred Spoken Language: Occitan Is interpretation needed?: No Implanted or Applied Medical D: None Past Medical History Surgeries: Vasectomy Family Medical History Reviewed Nursing Family Hx No Pertinent Family Hx Review of Systems Constitutional: chills, fever, malaise EENTM: no symptoms reported Respiratory: cough, dyspnea on exertion, phlegm, short of breath Cardiovascular: No chest pain, No edema, No Hx of Intervention, No palpitations Gastrointestinal: loss of appetite Genitourinary: no symptoms reported Musculoskeletal: muscle pain Skin: no symptoms reported Psychiatric/Neurological: No Symptoms Reported Physical Exam Physical Exam Vital Signs Vital Signs - First Documented 04/08/21 04/08/21 08:51 09:58 Temp 37.7 Pulse 93 Resp 28 B/P (MAP) 175/107 (129) Pulse Ox 64 O2 Delivery Room Air O2 Flow Rate 10.00 FiO2 60 Capillary Refill : Less Than 3 Seconds Height, Weight, BMI Height: '" Weight: lbs. oz. kg; 37.87 BMI Method: General Appearance: No Apparent Distress, WD/WN, Obese HEENT: PERRL/EOMI, Moist Mucous Membranes; No Scleral Icterus (L), No Scleral Icterus (R) Neck: Normal Inspection, Supple Respiratory: No Accessory Muscle Use, Rhonci, Other (on 6lpm HFNC) Cardiovascular: Regular Rate, Rhythm, No Murmur Gastrointestinal: Normal Bowel Sounds, Non Tender, Soft Extremity: Normal Capillary Refill, No Calf Tenderness, No Pedal Edema Neurologic/Psychiatric: Alert, Normal Mood/Affect Results Results/Procedures Labs Laboratory Tests 04/08/21 09:00 Patient resulted labs reviewed. Imaging: Reviewed Imaging Report Imaging [facility] [place] NAME: ANIA SCHNEIDER [facility] REC#: [id number] PT STATUS: REG ER : 1980 PHYSICIAN: ART QUILES MD ADMIT DATE: 04/08/21/ER Draft Date of Exam:04/08/21 CHEST 1 VIEW, AP/PA ONLY INDICATION: Sepsis, Covid positive Frontal chest obtained at 0935 a.m. and compared to 04/07/2021. Heart and mediastinal silhouette appear unremarkable. There are very low lung volumes. There is extensive worsening of infiltrate throughout both lungs compared to the prior study. There is no pneumothorax or pleural fluid. IMPRESSION: Extensive worsening of bilateral infiltrates compared to the prior study, findings are compatible with worsening pneumonia. There is very poor inspiration. Dictated on workstation # [id number] Dict: 04/08/21 0958 Trans: 04/08/21 1002 [facility] [id number] Interpreted by: CECY QUINTANILLA MD Electronically signed by: Assessment/Plan Admission Diagnosis Acute hypoxic respiratory failure due to COVID19 Admission Status: Inpatient Order (span 2 midnights) Reason for Inpatient Admission: see below Assessment and Plan Acute hypoxic respiratory failure due to COVID19 Admitted to ICU Received Actemra in ER No indication for Remdesivr given severity of illness and outside of window Continue decadron Lovenox IS MAT protocol TeleICU consulted Procal mildly elevated, check in AM if trending up will start abx CTA from ER visit yesterday was negative for PE Elevated BP No history of this Trend for now Discussed with his PCP who states he's been borderline hypertensive for a while but has not taken medications DVT ppx:Lovenox Diagnosis/Problems Diagnosis/Problems (1) Elevated blood pressure reading (2) Pneumonia due to COVID-19 virus Status: Acute (3) Respiratory failure Status: Acute Qualifiers: Chronicity: acute Respiratory failure complication: hypoxia Qualified Codes: J96.01 - Acute respiratory failure with hypoxia Copy Copies To 1: HERLINDA DURAN MD, KATELYN M MD Apr 08, 2021 11:39
[2021-04-08] MEDS ORDERED: dexAMETHasone 6 MG TAB (DECADRON) PO SCH (12:15)
--- NOTE | 2021-04-08 12:40 | Tele-ICU Consult ---
History of Present Illness History of Present Illness Date Seen by Provider: Apr 08, 2021 Time Seen by Provider: 12:40 Date of Admission Allergies and Home Medications Allergies Uncoded Allergies: florescein stain (Allergy, Severe, 04/08/21) Home Medications Budesonide 180 Mcg Aer.pow.ba, 360 MCG IH BID Prescribed by: CRICKET JAMA on 04/07/21 1337 Past Medical/Social/Family Hx Patient Social History Marrital Status: Tobacco Use?: No Smoking Status: Never a Smoker Smokeless type used: Chew Smokeless Tobacco Frequency: Current Everyday User Use of E-Cig and/or Vaping dev: No Substance use?: No Alcohol Use?: No Pt stated abuse/neglect: No Immunizations Up To Date Influenza Vaccine Up-to-Date: No; Not Current First/Initial COVID19 Vaccinat: none Tetanus Booster (TDap): Unknown Hepatitis A: No Hepatitis B: No TB Skin Test: None Current Status Advance Directives: No Communicates: Verbally Primary Language: Citizen Of [place] Preferred Spoken Language: Citizen Of [place] Is interpretation needed?: No Implanted or Applied Medical D: None Review of Systems Constitutional: see HPI Sepsis Event Evaluation Height, Weight, BMI Height: '" Weight: lbs. oz. kg; 37.87 BMI Method: Exam Exam Patient acknowledged, consented, and participated in this virtual visit which was conducted using real time audio/video Vital Signs Date Time Temp Pulse Resp B/P (MAP) Pulse Ox O2 Delivery O2 Flow Rate FiO2 04/08/21 12:24 75 98 04/08/21 11:52 98 High Flow N/C 6.00 04/08/21 11:18 98 High Flow N/C 10.00 04/08/21 10:58 36.4 88 22 154/102 99 OxyMask 10.00 04/08/21 10:45 110 20 148/78 96 Vapotherm 04/08/21 09:58 95 Vapotherm 25.00 60 04/08/21 08:51 OxyMask 10.00 04/08/21 08:51 37.7 93 28 175/107 (129) 64 Room Air Height & Weight Height: '" Weight: lbs. oz. kg; 37.87 BMI Method: General Appearance: No Apparent Distress, WD/WN, Obese HEENT: PERRL/EOMI, Moist Mucous Membranes; No Scleral Icterus (L), No Scleral Icterus (R) Neck: Normal Inspection, Supple Respiratory: No Accessory Muscle Use, Rhonci, Other (on 6lpm HFNC) Cardiovascular: Regular Rate, Rhythm, No Murmur Capillary Refill: Less Than 3 Seconds Gastrointestinal: non tender, soft Extremity: Normal Capillary Refill, No Calf Tenderness, No Pedal Edema Neurologic/Psychiatric: Alert, Normal Mood/Affect Results Lab Laboratory Tests 04/08/21 09:00 Assessment/Plan Assessment/Plan (Tele-ICU Physician , consultation) Available chart/ vitals / labs / Images reviewed H&P is from ER ntes Patient's information available about PMH, Shx, Fhx allergy reviewed in EMR. ROS as per chart and RN report Now in ICU, hemodynamically stable Video assessment done using teleICU camera, rest of exam as per RN Discussed with RN. 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 Lines : periph (Central Line Necessity Reviewed) Gilbert: OG: Nutrition: Analgesia: Anxiety/ delirium VTE Prophylaxis: lovenox 40 Stress Ulcer Prophylaxis: pepcid Plans in collaboration with bedside consultants and IM MDs. discused with Dr Trivedi Discussed with RN to reach out if any questions or concerns A total of 33 minutes of critical care time was devoted to this patient today, required to treat and/or prevent further deterioration of critical care condition ( as above ) . ANTHONY STEVEN MD Apr 08, 2021 12:40
[2021-04-08] MEDS: ENOXAPARIN 40 MG/0.4 ML (LOVENOX) SYR SC SCH (13:21)
[2021-04-08] MEDS: FAMOTIDINE 20 MG (PEPCID) TABLET PO SCH (19:54)
[2021-04-08] MEDS: guaiFENesin/CODEINE (ROBITUSSIN AC) 10ML UDC PO PRN (21:46)
[2021-04-09] MEDS: guaiFENesin/CODEINE (ROBITUSSIN AC) 10ML UDC PO PRN ×2 (01:54→20:04)
[2021-04-09 05:46] LABS: HEMATOCRIT 42 % (40-54); HEMOGLOBIN 14.1 g/dL (13.3-17.7); MEAN CORPUSCULAR HEMOGLOBIN 29 pg (25-34); MEAN CORPUSCULAR HGB CONC 34 g/dL (32-36); MEAN CORPUSCULAR VOLUME 85 fL (80-99); MEAN PLATELET VOLUME 9.6 fL (9.0-12.2); PLATELET COUNT 478 10^3/uL (130-400); WHITE BLOOD COUNT 9.5 10^3/uL (4.3-11.0)
[2021-04-09 06:08] LABS: CALCIUM 9.1 MG/DL (8.5-10.1); CREATININE SERUM 0.91 MG/DL (0.60-1.30); MAGNESIUM 2.7 MG/DL (1.6-2.4); POTASSIUM 4.7 MMOL/L (3.6-5.0)
[2021-04-09] MEDS: KCL 20 MEQ TAB (K-DUR) PO SCH (06:15)
[2021-04-09] MEDS: POTASSIUM CL 10MEQ/50ML IVPB 50 ML IV SCH (06:15)
[2021-04-09] MEDS: MAGNESIUM 1 GM/100 ML IVPB 100 ML IV SCH (06:15)
[2021-04-09 06:46] VITALS: BP 142/122
--- NOTE | 2021-04-09 08:54 | Progress Note - Hospitalist ---
Subjective HPI/CC On Admission Date Seen by Provider: Apr 09, 2021 Time Seen by Provider: 08:28 Patient is a 41-year-old male who presented to the emergency department due to shortness of breath and hypoxia. He reports feeling poorly for at least 10 days and was seen in the emergency department yesterday for presumed Covid. He had been being treated by a nurse practitioner [place] with ivermectin, azithromycin, Medrol Dosepak, and multiple vitamins. Despite this he continued to worsen and was seen in the emergency department yesterday. He was not hypoxic and had no admission criteria so was discharged home with an inhaler. He continued to worsen and was hypoxic to the 60s on arrival to the ER. He was placed on an oxygen mask and then switched to Vapotherm due to refractory hypoxia. He has been admitted to the ICU for further care. He complains of fevers, myalgias, cough, sputum production, loss of taste and smell, nausea. He is unvaccinated against COVID19. Subjective/Events-last exam Pt reports feeling about the same today. Had a coughing fit overnight. No other complaints. Discussed with RN and had to go up to 10lpm HFNC overnight. Also had a coughing fit with desaturation but recovered slowly. Was satting 99% when I was in room. Focused Exam Lactate Level 04/08/21 09:00: Lactic Acid Level 2.12*H 04/08/21 11:25: Lactic Acid Level 1.26 Objective Exam Vital Signs Vital Signs Date Time Temp Pulse Resp B/P (MAP) Pulse Ox O2 Delivery O2 Flow Rate FiO2 04/09/21 07:00 64 04/09/21 06:46 36.7 93 04/09/21 06:00 21 142/122 Nasal Cannula 10.00 04/08/21 09:58 60 Capillary Refill : Less Than 3 Seconds General Appearance: No Apparent Distress, Obese Respiratory: No Respiratory Distress, Rhonci Cardiovascular: Regular Rate, Rhythm, No Murmur Neurologic/Psychiatric: Alert, Oriented x3 Results/Procedures Lab Laboratory Tests 04/08/21 09:00 04/09/21 05:32 Patient resulted labs reviewed. Imaging: Reviewed Imaging Report Assessment/Plan Assessment and Plan Assess & Plan/Chief Complaint Acute hypoxic respiratory failure due to COVID19 Admitted to ICU Actemra 04/08 No indication for Remdesivr given severity of illness and outside of window Continue decadron Lovenox IS MAT protocol TeleICU consulted Procal trending down CTA from ER visit 04/07 was negative for PE Elevated BP No history of this Trend for now Discussed with his PCP who states he's been borderline hypertensive for a while but has not taken medications DVT ppx: Lovenox Diagnosis/Problems Diagnosis/Problems (1) Elevated blood pressure reading (2) Pneumonia due to COVID-19 virus Status: Acute (3) Respiratory failure Status: Acute Qualifiers: Chronicity: acute Respiratory failure complication: hypoxia Qualified Codes: J96.01 - Acute respiratory failure with hypoxia ANITA LE MD Apr 09, 2021 08:54
--- NOTE | 2021-04-09 09:08 | Tele-ICU Progress Note ---
Subjective Date Seen by a Provider: Apr 09, 2021 Time Seen by a Provider: 09:03 Subjective/Events-last exam On high flow for COVID 19/ARDS, 8 lpm with SpO2 98% but as low as 86%, when coughs or moves around On IV decadron 10 bid, received tocziliumab, being pronned CXR from yesterday showed worsening bilateral infiltrates, was done at [facility]. Did not get vaccinated Sepsis Event Evaluation Height, Weight, BMI Height: '" Weight: lbs. oz. kg; 37.87 BMI Method: Focused Exam Lactate Level 04/08/21 09:00: Lactic Acid Level 2.12*H 04/08/21 11:25: Lactic Acid Level 1.26 Exam Exam Patient acknowledged, consented, and participated in this virtual visit which was conducted using real time audio/video Vital Signs Date Time Temp Pulse Resp B/P (MAP) Pulse Ox O2 Delivery O2 Flow Rate FiO2 04/09/21 08:00 66 4 152/93 98 Nasal Cannula 8.00 04/09/21 07:00 64 04/09/21 07:00 64 4 158/95 98 Nasal Cannula 9.00 04/09/21 06:46 36.7 75 93 04/09/21 06:00 75 21 142/122 93 Nasal Cannula 10.00 04/09/21 05:52 High Flow N/C 10.00 04/09/21 05:50 78 142/107 88 Nasal Cannula 7.00 04/09/21 04:00 Nasal Cannula 7.00 04/09/21 04:00 70 12 146/94 94 Nasal Cannula 7.00 04/09/21 03:00 68 28 138/97 98 Nasal Cannula 7.00 04/09/21 02:00 89 15 152/115 90 Nasal Cannula 7.00 04/09/21 01:30 Nasal Cannula 7.00 04/09/21 01:00 78 04/09/21 01:00 78 132/75 92 Nasal Cannula 5.00 04/09/21 00:02 Nasal Cannula 5.00 04/09/21 00:00 36.7 04/09/21 00:00 71 143/89 95 Nasal Cannula 5.00 04/08/21 23:00 76 16 160/93 94 Nasal Cannula 5.00 04/08/21 22:00 79 19 133/78 90 Nasal Cannula 5.00 04/08/21 21:00 77 156/105 98 Nasal Cannula 5.00 04/08/21 20:09 93 Nasal Cannula 5.00 04/08/21 20:00 89 10 155/108 95 Nasal Cannula 5.00 04/08/21 19:48 36.4 85 28 145/99 97 Nasal Cannula 5.00 04/08/21 19:00 80 04/08/21 19:00 80 27 174/95 94 Nasal Cannula 5.00 04/08/21 18:10 87 14 168/115 97 Nasal Cannula 5.00 04/08/21 17:39 94 14 187/124 94 Nasal Cannula 5.00 04/08/21 17:30 84 14 164/106 93 Nasal Cannula 6.00 04/08/21 16:18 36.8 04/08/21 16:04 77 15 151/90 97 Nasal Cannula 6.00 04/08/21 15:24 96 Nasal Cannula 6.00 04/08/21 14:38 91 8 159/90 96 Nasal Cannula 6.00 04/08/21 13:57 72 04/08/21 13:30 88 14 168/102 98 Nasal Cannula 6.00 04/08/21 13:00 76 18 144/75 98 Nasal Cannula 6.00 04/08/21 12:39 90 30 168/112 94 Nasal Cannula 6.00 04/08/21 12:30 82 24 166/103 100 Nasal Cannula 6.00 04/08/21 12:24 75 98 04/08/21 12:00 94 Nasal Cannula 6.00 04/08/21 12:00 36.4 82 16 168/112 96 Nasal Cannula 6.00 04/08/21 11:52 98 High Flow N/C 6.00 04/08/21 11:30 86 22 145/98 99 Nasal Cannula 10.00 04/08/21 11:27 87 24 146/101 99 Nasal Cannula 10.00 04/08/21 11:18 98 High Flow N/C 10.00 04/08/21 11:15 87 26 166/123 96 OxyMask 10.00 04/08/21 11:00 90 24 151/110 97 OxyMask 10.00 04/08/21 10:58 36.4 88 22 154/102 99 OxyMask 10.00 04/08/21 10:45 110 20 148/78 96 Vapotherm 04/08/21 09:58 95 Vapotherm 25.00 60 I & O 04/09/21 07:00 Intake Total 1440 ml Output Total 2625 ml Balance -1185 ml Height & Weight Height: '" Weight: lbs. oz. kg; 37.87 BMI Method: General Appearance: No Apparent Distress, Obese HEENT: PERRL/EOMI, Moist Mucous Membranes; No Scleral Icterus (L), No Scleral Icterus (R) Neck: Normal Inspection, Supple Respiratory: No Respiratory Distress, Decreased Breath Sounds, Rhonci, Other (does desaturate on movement) Cardiovascular: Regular Rate, Rhythm, No Murmur Capillary Refill: Less Than 3 Seconds Gastrointestinal: non tender, soft Extremity: Normal Capillary Refill, No Calf Tenderness, No Pedal Edema Neurologic/Psychiatric: Alert, Oriented x3 Results Lab Laboratory Tests 04/08/21 09:00 04/09/21 05:32 Assessment/Plan Assessment/Plan Extensive PNA from COVID 19 PNA, will continue present mangaement and closely monitor SpO2 Critical Care: Critically Ill Patient Time spent with patient (mins): 25 PRESTON CHRISTNIE MD Apr 09, 2021 09:08
[2021-04-09] MEDS: FAMOTIDINE 20 MG (PEPCID) TABLET PO SCH ×2 (09:27→20:03)
[2021-04-09] MEDS: RT-ALBUTEROL HFA 8.5 GM INHALER IH SCH ×4 (10:00→22:11)
[2021-04-09] MEDS: ENOXAPARIN 40 MG/0.4 ML (LOVENOX) SYR SC SCH (12:51)
[2021-04-09] MEDS ORDERED: LACTATED RINGERS 0 ML IV ONE (13:51)
[2021-04-09] MEDS ORDERED: IBUP-2473 PO (15:18)
[2021-04-09] MEDS ORDERED: BUDE180A IH (15:18)
[2021-04-09] MEDS ORDERED: ASCO500C17 PO (15:18)
[2021-04-09] MEDS ORDERED: ASPI-1238 PO (15:18)
[2021-04-09] MEDS ORDERED: CHOL-34 PO (15:18)
[2021-04-10] MEDS: RT-ALBUTEROL HFA 8.5 GM INHALER IH SCH ×6 (02:49→22:20)
[2021-04-10 05:25] LABS: BASOPHILS % (AUTO) 0 % (0-10); EOSINOPHILS % (AUTO) 0 % (0-10); HEMATOCRIT 40 % (40-54); HEMOGLOBIN 13.3 g/dL (13.3-17.7); LYMPHOCYTES # (AUTO) 0.8 10^3/uL (1.0-4.0); LYMPHOCYTES % (AUTO) 8 % (12-44); MEAN CORPUSCULAR HEMOGLOBIN 28 pg (25-34); MEAN CORPUSCULAR HGB CONC 33 g/dL (32-36); MEAN CORPUSCULAR VOLUME 86 fL (80-99); MEAN PLATELET VOLUME 9.2 fL (9.0-12.2); MONOCYTES # (AUTO) 0.4 10^3/uL (0.0-1.0); MONOCYTES % (AUTO) 4 % (0-12); NEUTROPHILS % (AUTO) 87 % (42-75); PLATELET COUNT 483 10^3/uL (130-400); WHITE BLOOD COUNT 10.3 10^3/uL (4.3-11.0)
[2021-04-10] MEDS: KCL 20 MEQ TAB (K-DUR) PO SCH (05:32)
[2021-04-10] MEDS: MAGNESIUM 1 GM/100 ML IVPB 100 ML IV SCH (05:32)
[2021-04-10] MEDS: POTASSIUM CL 10MEQ/50ML IVPB 50 ML IV SCH (05:32)
[2021-04-10 05:44] LABS: CALCIUM 8.7 MG/DL (8.5-10.1); CREATININE SERUM 0.87 MG/DL (0.60-1.30); MAGNESIUM 2.6 MG/DL (1.6-2.4); PHOSPHORUS 4.2 MG/DL (2.3-4.7); POTASSIUM 5.5 MMOL/L (3.6-5.0)
[2021-04-10] MEDS: RT-ALBUTEROL HFA 8.5 GM INHALER IH PRN (06:45)
--- NOTE | 2021-04-10 08:48 | Progress Note - Hospitalist ---
Subjective HPI/CC On Admission Date Seen by Provider: Apr 10, 2021 Time Seen by Provider: 08:44 Patient is a 41-year-old male who presented to the emergency department due to shortness of breath and hypoxia. He reports feeling poorly for at least 10 days and was seen in the emergency department yesterday for presumed Covid. He had been being treated [place] a nurse practitioner in [place] with ivermectin, azithromycin, Medrol Dosepak, and multiple vitamins. Despite this he continued to worsen and was seen in the emergency department yesterday. He was not hypoxic and had no admission criteria so was discharged home with an inhaler. He continued to worsen and was hypoxic to the 60s on arrival to the ER. He was placed on an oxygen mask and then switched to Vapotherm due to refractory hypoxia. He has been admitted to the ICU for further care. He complains of fevers, myalgias, cough, sputum production, loss of taste and smell, nausea. He is unvaccinated against COVID19. Subjective/Events-last exam Pt repors feeling ok today. Ate more than he has been able to but then had a coughing fit. Complains of constipation as well. Declines treatment at this time though. Had a nosebleed yesterday and switched to oxi-mask. Now on HFNC but up to 12lpm from 6 yesterday. Informed him that we may need to switch to Vapotherm but due to nosebleed will try to avoid if we can. Focused Exam Lactate Level 04/08/21 09:00: Lactic Acid Level 2.12*H 04/08/21 11:25: Lactic Acid Level 1.26 Objective Exam Vital Signs Vital Signs Date Time Temp Pulse Resp B/P (MAP) Pulse Ox O2 Delivery O2 Flow Rate FiO2 04/10/21 07:53 91 Nasal Cannula 12.00 04/10/21 06:25 36.9 04/10/21 06:00 55 24 149/106 04/08/21 09:58 60 Capillary Refill : Less Than 3 Seconds General Appearance: No Apparent Distress, Obese Respiratory: No Accessory Muscle Use, Rhonci; No Wheezing; Other (on 12lpm HFNC) Cardiovascular: Regular Rate, Rhythm, No Murmur Neurologic/Psychiatric: Alert, Oriented x3, Depressed Affect Results/Procedures Lab Laboratory Tests 04/10/21 05:16 Patient resulted labs reviewed. Imaging: Reviewed Imaging Report Assessment/Plan Assessment and Plan Assess & Plan/Chief Complaint Acute hypoxic respiratory failure due to COVID19 Actemra 04/08 No indication for Remdesivr given severity of illness and outside of window Continue decadron Lovenox IS MAT protocol TeleICU consulted Procal trended down CTA from ER visit 04/07 was negative for PE Up to 12lpm HFNC today, may need vapotherm, keep in ICU Elevated BP No history of this Trend for now- within tolerable range Discussed with his PCP who states he's been borderline hypertensive for a while but has not taken medications DVT ppx: Lovenox Critical Care Critically Ill Patient Diagnosis/Problems Diagnosis/Problems (1) Elevated blood pressure reading (2) Pneumonia due to COVID-19 virus Status: Acute (3) Respiratory failure Status: Acute Qualifiers: Chronicity: acute Respiratory failure complication: hypoxia Qualified Codes: J96.01 - Acute respiratory failure with hypoxia ANITA LE MD Apr 10, 2021 08:48
[2021-04-10] MEDS: FAMOTIDINE 20 MG (PEPCID) TABLET PO SCH ×2 (09:26→21:45)
--- NOTE | 2021-04-10 10:34 | Tele-ICU Progress Note ---
Subjective Date Seen by a Provider: Apr 10, 2021 Time Seen by a Provider: 10:34 Sepsis Event Evaluation Height, Weight, BMI Height: '" Weight: lbs. oz. kg; 37.87 BMI Method: Focused Exam Lactate Level 04/08/21 09:00: Lactic Acid Level 2.12*H 04/08/21 11:25: Lactic Acid Level 1.26 Exam Exam Patient acknowledged, consented, and participated in this virtual visit which was conducted using real time audio/video Vital Signs Date Time Temp Pulse Resp B/P (MAP) Pulse Ox O2 Delivery O2 Flow Rate FiO2 04/10/21 09:22 100 High Flow N/C 10.00 04/10/21 09:00 88 25 159/103 98 High Flow N/C 12.00 04/10/21 08:00 89 160/110 92 High Flow N/C 12.00 04/10/21 08:00 36.0 04/10/21 07:53 91 Nasal Cannula 12.00 04/10/21 07:00 90 04/10/21 07:00 82 168/118 91 High Flow N/C 12.00 04/10/21 06:46 92 High Flow N/C 13.00 04/10/21 06:30 High Flow N/C 12.00 04/10/21 06:25 36.9 04/10/21 06:00 55 24 149/106 100 OxyMask 12.00 04/10/21 05:00 69 14 152/96 99 OxyMask 12.00 04/10/21 04:00 67 20 150/105 96 OxyMask 12.00 04/10/21 04:00 OxyMask 12.00 04/10/21 03:00 75 18 161/104 87 OxyMask 12.00 04/10/21 02:49 92 OxyMask 12.00 04/10/21 02:44 OxyMask 12.00 04/10/21 02:00 66 20 139/82 100 OxyMask 15.00 04/10/21 01:00 66 18 144/90 90 OxyMask 15.00 04/10/21 01:00 70 04/10/21 00:00 62 18 145/95 97 OxyMask 15.00 04/10/21 00:00 36.2 04/09/21 23:13 OxyMask 15.00 04/09/21 23:00 65 22 148/92 95 OxyMask 15.00 04/09/21 22:12 97 OxyMask 15.00 04/09/21 22:00 66 22 145/100 97 OxyMask 15.00 04/09/21 21:00 61 23 148/94 99 OxyMask 15.00 04/09/21 20:29 OxyMask 15.00 04/09/21 20:01 36.8 78 24 142/112 92 OxyMask 15.00 04/09/21 20:00 80 20 142/112 91 OxyMask 15.00 04/09/21 19:00 100 22 178/103 91 OxyMask 15.00 04/09/21 19:00 100 04/09/21 18:48 97 OxyMask 14.00 04/09/21 18:00 62 139/90 99 OxyMask 15.00 04/09/21 17:00 81 36 145/99 91 OxyMask 15.00 04/09/21 16:39 OxyMask 15.00 04/09/21 16:11 36.4 04/09/21 16:00 Nasal Cannula 8.00 04/09/21 16:00 78 25 176/110 97 Nasal Cannula 9.00 04/09/21 15:42 Nasal Cannula 9.00 04/09/21 15:32 93 High Flow N/C 8.00 04/09/21 15:00 69 33 142/92 99 Nasal Cannula 8.00 04/09/21 14:00 73 25 142/92 85 Nasal Cannula 8.00 04/09/21 13:00 68 04/09/21 13:00 66 140/88 95 Nasal Cannula 8.00 04/09/21 12:03 Nasal Cannula 8.00 04/09/21 12:00 70 27 153/96 99 Nasal Cannula 8.00 04/09/21 11:00 85 15 177/136 87 Nasal Cannula 8.00 I & O 04/10/21 07:00 Intake Total 2700 ml Output Total 2325 ml Balance 375 ml Height & Weight Height: '" Weight: lbs. oz. kg; 37.87 BMI Method: General Appearance: No Apparent Distress, Obese HEENT: PERRL/EOMI, Moist Mucous Membranes; No Scleral Icterus (L), No Scleral Icterus (R) Neck: Normal Inspection, Supple Respiratory: No Accessory Muscle Use, Rhonci; No Wheezing; Other (on 12lpm H FNC) Cardiovascular: Regular Rate, Rhythm, No Murmur Capillary Refill: Less Than 3 Seconds Gastrointestinal: non tender, soft Extremity: Normal Capillary Refill, No Calf Tenderness, No Pedal Edema Neurologic/Psychiatric: Alert, Oriented x3, Depressed Affect Results Lab Laboratory Tests 04/09/21 05:32 04/10/21 05:16 Assessment/Plan Assessment/Plan (Tele-ICU Physician , Progress Note ) Available chart/ vitals / labs / Images reviewed Video assessment done using teleICU camera, rest of exam as per RN Discussed with RN , EXAM PER RN Events overnight : Afebrile I/O = even Drips: Pressors: , hemodynamically stable Consultants: Hospital course: 04/08 - ER -> ICU , covid pna , Vapotherm to 10 L 04/10 - 12L o2 A/P AHRF / ARDS due to severe COVID19 - Fio2 12 L = > 8L -prone position if able - conservative fluid strategy (aim for even or negative fluid balance [id number]-6/COVID-19 PNA (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 , --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 , 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 - finished a steroid Dosepak , Z-Felix, vitamins as well as ivermectin -Dexamethasone 04/08 - dexa 10 bid IV - To 10 qd 04/10 Tocilizumab ordered 04/08 , ( will start Acyclovir for HSV/VZV prophylaxis after Tocilizumab- 30 days 400 po bid ) -Hypercoagulable state , DDIMER 0.5 on 04/07 on -> lovenox ppx dose , ( no evidence of large PE on CT 04/07 ) monitor for superimposed bact PNA -PCT birderline , OFF abx monitor after Actemra Cx sputum - no reports - blood cx neg 04/08 -nasal swab neg mrsa 04/08 transaminitis likely due to COVID-19 - follow HyperKalemia 04/10 - follow Lines : periph (Central Line Necessity Reviewed) Gilbert: OG: Nutrition: po Analgesia: ok Anxiety/ delirium VTE Prophylaxis: lovenox 40 Stress Ulcer Prophylaxis: pepcid Plans in collaboration with bedside consultants and IM MDs. discused with Dr Trivedi Discussed with RN to reach out if any questions or concerns A total of 33 minutes of critical care time was devoted to this patient today, required to treat and/or prevent further deterioration of critical care condition ( as above ) . ANTHONY STEVEN MD Apr 10, 2021 10:34
[2021-04-10 11:02] LABS: ALBUMIN 3.4 GM/DL (3.2-4.5); BILIRUBIN,TOTAL 0.6 MG/DL (0.1-1.0); CALCIUM 8.9 MG/DL (8.5-10.1); CREATININE SERUM 0.89 MG/DL (0.60-1.30); POTASSIUM 5.5 MMOL/L (3.6-5.0); TOTAL PROTEIN 6.8 GM/DL (6.4-8.2)
[2021-04-10] MEDS: ENOXAPARIN 40 MG/0.4 ML (LOVENOX) SYR SC SCH (12:05)
[2021-04-10] MEDS: ACYCLOVIR 400 MG TABLET (ZOVIRAX) PO SCH (21:45)
[2021-04-11] MEDS: RT-ALBUTEROL HFA 8.5 GM INHALER IH SCH ×6 (02:45→22:30)
[2021-04-11 05:13] LABS: BASOPHILS % (AUTO) 0 % (0-10); EOSINOPHILS % (AUTO) 0 % (0-10); HEMATOCRIT 40 % (40-54); HEMOGLOBIN 13.3 g/dL (13.3-17.7); LYMPHOCYTES # (AUTO) 1.4 10^3/uL (1.0-4.0); LYMPHOCYTES % (AUTO) 17 % (12-44); MEAN CORPUSCULAR HEMOGLOBIN 28 pg (25-34); MEAN CORPUSCULAR HGB CONC 33 g/dL (32-36); MEAN CORPUSCULAR VOLUME 86 fL (80-99); MEAN PLATELET VOLUME 8.9 fL (9.0-12.2); MONOCYTES # (AUTO) 0.6 10^3/uL (0.0-1.0); MONOCYTES % (AUTO) 7 % (0-12); NEUTROPHILS % (AUTO) 74 % (42-75); PLATELET COUNT 453 10^3/uL (130-400); WHITE BLOOD COUNT 8.1 10^3/uL (4.3-11.0)
[2021-04-11 05:30] LABS: CALCIUM 8.4 MG/DL (8.5-10.1); CREATININE SERUM 0.82 MG/DL (0.60-1.30); MAGNESIUM 2.4 MG/DL (1.6-2.4); POTASSIUM 4.8 MMOL/L (3.6-5.0)
[2021-04-11] MEDS: POTASSIUM CL 10MEQ/50ML IVPB 50 ML IV SCH (06:10)
[2021-04-11] MEDS: MAGNESIUM 1 GM/100 ML IVPB 100 ML IV SCH (06:11)
[2021-04-11] MEDS: KCL 20 MEQ TAB (K-DUR) PO SCH (06:11)
--- NOTE | 2021-04-11 08:31 | Tele-ICU Progress Note ---
Subjective Date Seen by a Provider: Apr 11, 2021 Time Seen by a Provider: 07:00 Subjective/Events-last exam This virtual visit was conducted using real time audio/video. Thank you for asking us to see this patient for respiratory insufficiency and distress due to B Covid pna.. HPC: Recent events: Down to 4 LPM, standing in room. PE: VSS O2 sat 93% on 4 LPM NC. HEENT: No obvious masses, adenopathy or JVD. Chest: clear to auscultation. CV: RRR S1 S2 No murmur or added sounds. Abd: Non-tender. Bowel sounds . : Unremarkable. 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 No obvious focal findings. Extremities: No edema. Capillary refill < 3 seconds. Skin: unremarkable. Results: B infilts., worse on 04/08/21. A/P: Respiratory insufficiency/distress: Wean O2 as rock., possible transfer. Available chart/ vitals / labs / Images reviewed. Video assessment done using teleICU camera, rest of exam as per RN. Monitor for increasing oxygenation needs. Critical Care: critically ill patient. Cont Albuterol, Dex., Melchor. Discussed with JOE Méndez. Asked RN to reach out to eICU if any questions or concerns later. Time spent with patient/coordination of care with other health professionals (mins): 15 From: Hannah Harrington MD Sepsis Event Evaluation Height, Weight, BMI Height: '" Weight: lbs. oz. kg; 37.87 BMI Method: Focused Exam Lactate Level 04/08/21 09:00: Lactic Acid Level 2.12*H 04/08/21 11:25: Lactic Acid Level 1.26 Exam Exam Patient acknowledged, consented, and participated in this virtual visit which was conducted using real time audio/video Vital Signs Date Time Temp Pulse Resp B/P (MAP) Pulse Ox O2 Delivery O2 Flow Rate FiO2 04/11/21 08:00 76 28 134/90 90 High Flow N/C 4.00 04/11/21 07:59 36.3 04/11/21 07:00 70 28 147/108 95 High Flow N/C 4.00 04/11/21 07:00 79 04/11/21 06:55 99 High Flow N/C 6.00 04/11/21 06:00 53 16 130/95 100 High Flow N/C 6.00 04/11/21 05:00 73 21 148/106 92 High Flow N/C 6.00 04/11/21 04:00 55 24 143/88 98 High Flow N/C 6.00 04/11/21 04:00 Nasal Cannula 5.00 04/11/21 03:00 71 21 153/90 95 High Flow N/C 6.00 04/11/21 02:45 99 High Flow N/C 5.00 04/11/21 02:00 57 24 154/96 100 High Flow N/C 6.00 04/11/21 01:00 56 142/103 100 High Flow N/C 6.00 04/11/21 01:00 56 04/11/21 00:00 66 183/97 98 High Flow N/C 6.00 04/10/21 23:59 93 Nasal Cannula 5.00 04/10/21 23:59 85 183/97 92 High Flow N/C 6.00 04/10/21 23:00 61 133/74 92 High Flow N/C 6.00 04/10/21 22:20 90 High Flow N/C 5.00 04/10/21 22:00 62 162/120 95 High Flow N/C 6.00 04/10/21 21:00 62 133/86 99 High Flow N/C 6.00 04/10/21 20:05 Nasal Cannula 5.00 04/10/21 20:00 66 153/92 98 High Flow N/C 6.00 04/10/21 19:00 69 04/10/21 19:00 69 179/111 98 High Flow N/C 6.00 04/10/21 18:32 93 High Flow N/C 5.00 04/10/21 18:12 High Flow N/C 6.00 04/10/21 18:00 73 173/115 90 High Flow N/C 8.00 04/10/21 17:00 68 20 154/93 96 High Flow N/C 8.00 04/10/21 16:31 36.1 04/10/21 16:30 97 Nasal Cannula 8.00 04/10/21 16:00 94 90 High Flow N/C 8.00 04/10/21 15:00 78 161/112 92 High Flow N/C 8.00 04/10/21 14:16 92 High Flow N/C 8.00 04/10/21 14:00 64 11 138/89 98 High Flow N/C 8.00 04/10/21 13:00 63 24 142/91 87 High Flow N/C 8.00 04/10/21 13:00 64 04/10/21 12:00 81 39 146/103 89 High Flow N/C 8.00 04/10/21 12:00 97 Nasal Cannula 8.00 04/10/21 11:58 36.0 04/10/21 11:00 63 117/100 96 High Flow N/C 8.00 04/10/21 10:00 85 137/93 96 High Flow N/C 8.00 04/10/21 09:30 97 High Flow N/C 8.00 04/10/21 09:22 100 High Flow N/C 10.00 04/10/21 09:00 88 25 159/103 98 High Flow N/C 12.00 I & O 04/11/21 07:00 Intake Total 2250 ml Output Total 2525 ml Balance -275 ml Height & Weight Height: '" Weight: lbs. oz. kg; 37.87 BMI Method: General Appearance: No Apparent Distress, Obese HEENT: PERRL/EOMI, Moist Mucous Membranes; No Scleral Icterus (L), No Scleral Icterus (R) Neck: Normal Inspection, Supple Respiratory: No Accessory Muscle Use, Rhonci; No Wheezing; Other (on 12lpm HFNC) Cardiovascular: Regular Rate, Rhythm, No Murmur Capillary Refill: Less Than 3 Seconds Gastrointestinal: non tender, soft Extremity: Normal Capillary Refill, No Calf Tenderness, No Pedal Edema Neurologic/Psychiatric: Alert, Oriented x3, Depressed Affect Results Lab Laboratory Tests 04/10/21 05:16 04/11/21 04:55 Assessment/Plan Assessment/Plan See free text Critical Care: Critically Ill Patient HANNAH HARRINGTON MD Apr 11, 2021 08:31
[2021-04-11] MEDS: ACYCLOVIR 400 MG TABLET (ZOVIRAX) PO SCH ×2 (08:58→22:40)
[2021-04-11] MEDS: FAMOTIDINE 20 MG (PEPCID) TABLET PO SCH ×2 (08:58→22:40)
--- NOTE | 2021-04-11 12:22 | Progress Note - Hospitalist ---
Subjective HPI/CC On Admission Date Seen by Provider: Apr 11, 2021 Time Seen by Provider: 08:30 Patient is a 41-year-old male who presented to the emergency department due to shortness of breath and hypoxia. He reports feeling poorly for at least 10 days and was seen in the emergency department yesterday for presumed Covid. He had been being [place] nurse practitioner [place] with ivermectin, azithromycin, Medrol Dosepak, and multiple vitamins. Despite this he continued to worsen and was seen in the emergency department yesterday. He was not hypoxic and had no admission criteria so was discharged home with an inhaler. He continued to worsen and was hypoxic to the 60s on arrival to the ER. He was placed on an oxygen mask and then switched to Vapotherm due to refractory hypoxia. He has been admitted to the ICU for further care. He complains of fevers, myalgias, cough, sputum production, loss of taste and smell, nausea. He is unvaccinated against COVID19. Subjective/Events-last exam Pt reports feeling better today. Downt o 4lpm. Eating better and less coughing. Objective Exam Vital Signs Vital Signs Date Time Temp Pulse Resp B/P (MAP) Pulse Ox O2 Delivery O2 Flow Rate FiO2 04/11/21 12:00 63 18 6 High Flow N/C 6.00 04/11/21 08:00 134/90 04/11/21 07:59 36.3 04/08/21 09:58 60 Capillary Refill : Less Than 3 Seconds General Appearance: No Apparent Distress, Obese Respiratory: Decreased Breath Sounds, Other (on 4lpm) Cardiovascular: Regular Rate, Rhythm, No Murmur Neurologic/Psychiatric: Alert, Oriented x3 Results/Procedures Lab Laboratory Tests 04/11/21 04:55 Patient resulted labs reviewed. Imaging: Reviewed Imaging Report Assessment/Plan Assessment and Plan Assess & Plan/Chief Complaint Acute hypoxic respiratory failure due to COVID19 Actemra 04/08 No indication for Remdesivr given severity of illness and outside of window Continue decadron Lovenox IS MAT protocol TeleICU consulted CTA from ER visit 04/07 was negative for PE Down to 4lpm, doing well transfer to med/surg Elevated BP No history of this Trend for now- within tolerable range Discussed with his PCP who states he's been borderline hypertensive for a while but has not taken medications DVT ppx: Lovenox Critical Care Critically Ill Patient Diagnosis/Problems Diagnosis/Problems (1) Elevated blood pressure reading (2) Pneumonia due to COVID-19 virus Status: Acute (3) Respiratory failure Status: Acute Qualifiers: Chronicity: acute Respiratory failure complication: hypoxia Qualified Codes: J96.01 - Acute respiratory failure with hypoxia ANITA LE MD Apr 11, 2021 12:22
[2021-04-11] MEDS: ENOXAPARIN 40 MG/0.4 ML (LOVENOX) SYR SC SCH (12:28)
[2021-04-12] MEDS: RT-ALBUTEROL HFA 8.5 GM INHALER IH SCH ×6 (02:42→21:54)
[2021-04-12 07:14] LABS: CALCIUM 8.2 MG/DL (8.5-10.1); CREATININE SERUM 0.74 MG/DL (0.60-1.30); MAGNESIUM 2.3 MG/DL (1.6-2.4); POTASSIUM 4.6 MMOL/L (3.6-5.0)
[2021-04-12] MEDS: KCL 20 MEQ TAB (K-DUR) PO SCH (07:24)
[2021-04-12] MEDS: MAGNESIUM 1 GM/100 ML IVPB 100 ML IV SCH (07:24)
[2021-04-12] MEDS: POTASSIUM CL 10MEQ/50ML IVPB 50 ML IV SCH (07:24)
[2021-04-12] MEDS: FAMOTIDINE 20 MG (PEPCID) TABLET PO SCH ×2 (09:28→20:51)
[2021-04-12] MEDS: ACYCLOVIR 400 MG TABLET (ZOVIRAX) PO SCH ×2 (09:28→20:51)
--- NOTE | 2021-04-12 12:04 | Progress Note - Hospitalist ---
Subjective HPI/CC On Admission Date Seen by Provider: Apr 12, 2021 Time Seen by Provider: 12:03 Patient is a 41-year-old male who presented to the emergency department due to shortness of breath and hypoxia. He reports feeling poorly for at least 10 days and was seen in the emergency department yesterday for presumed Covid. He had been being treated by a nurse practitioner [place] with ivermectin, azithromycin, Medrol Dosepak, and multiple vitamins. Despite this he continued to worsen and was seen in the emergency department yesterday. He was not hypoxic and had no admission criteria so was discharged home with an inhaler. He continued to worsen and was hypoxic to the 60s on arrival to the ER. He was placed on an oxygen mask and then switched to Vapotherm due to refractory hypoxia. He has been admitted to the ICU for further care. He complains of fevers, myalgias, cough, sputum production, loss of taste and smell, nausea. He is unvaccinated against COVID19. Subjective/Events-last exam pt reports feeling much better today. No complaints. Down to 3lpm. Discussed plan for home oxygen study tomorrow and possible discharge pending results. Objective Exam Vital Signs Vital Signs Date Time Temp Pulse Resp B/P (MAP) Pulse Ox O2 Delivery O2 Flow Rate FiO2 04/12/21 10:28 94 High Flow N/C 3.00 04/12/21 08:00 36.0 63 22 91/67 04/08/21 09:58 60 Capillary Refill : Less Than 3 Seconds General Appearance: No Apparent Distress, WD/WN Respiratory: Lungs Clear, No Accessory Muscle Use, Other (on 3lpm) Cardiovascular: Regular Rate, Rhythm, No Murmur Neurologic/Psychiatric: Alert, Oriented x3 Results/Procedures Lab Laboratory Tests 04/12/21 06:44 Patient resulted labs reviewed. Imaging: Reviewed Imaging Report Assessment/Plan Assessment and Plan Assess & Plan/Chief Complaint Acute hypoxic respiratory failure due to COVID19 Actemra 04/08 Continue decadron Lovenox IS MAT protocol TeleICU consulted CTA from ER visit 04/07 was negative for PE Down to 3lpm today Home study tomorrwo in preparation for possible DC Elevated BP Trend for now- within tolerable range Discussed with his PCP who states he's been borderline hypertensive for a while but has not taken medications DVT ppx: Lovenox Critical Care Critically Ill Patient Diagnosis/Problems Diagnosis/Problems (1) Elevated blood pressure reading (2) Pneumonia due to COVID-19 virus Status: Acute (3) Respiratory failure Status: Acute Qualifiers: Chronicity: acute Respiratory failure complication: hypoxia Qualified Codes: J96.01 - Acute respiratory failure with hypoxia ANITA LE MD Apr 12, 2021 12:04
--- NOTE | 2021-04-12 12:10 | Discharge Inst-Simple/Standard ---
Discharge Inst-Standard Patient Instructions/Follow Up Plan of Care/Instructions/FU: Continue take your medications as written. Please follow-up with your primary care doctor Dr. Vargas to follow-up this hospital stay. Activity as Tolerated: Yes Discharge Diet: Cardiac Diet Return to The Hospital For: Chest pain, shortness of breath, low oxygen, fever, if you feel you are getting worse. ANITA LE MD Apr 12, 2021 12:10
[2021-04-12] MEDS: ENOXAPARIN 40 MG/0.4 ML (LOVENOX) SYR SC SCH (12:49)
[2021-04-13] MEDS: RT-ALBUTEROL HFA 8.5 GM INHALER IH SCH ×3 (02:37→09:57)
[2021-04-13 07:31] LABS: CALCIUM 8.7 MG/DL (8.5-10.1); CREATININE SERUM 0.97 MG/DL (0.60-1.30); MAGNESIUM 2.3 MG/DL (1.6-2.4); POTASSIUM 4.5 MMOL/L (3.6-5.0)
[2021-04-13] MEDS: RT-ALBUTEROL HFA 8.5 GM INHALER IH PRN (07:55)
[2021-04-13] MEDS: ACYCLOVIR 400 MG TABLET (ZOVIRAX) PO SCH (08:53)
[2021-04-13] MEDS: FAMOTIDINE 20 MG (PEPCID) TABLET PO SCH (08:53)
--- NOTE | 2021-04-13 10:05 | Discharge Summary ---
Diagnosis/Chief Complaint Date of Admission Apr 08, 2021 at 09:16 Date of Discharge Discharge Date: Apr 13, 2021 Admission Diagnosis Acute hypoxic respiratory failure due to COVID19 Primary Care Barbra Vargas MD Discharge Diagnosis (1) Elevated blood pressure reading (2) Pneumonia due to COVID-19 virus Status: Acute (3) Respiratory failure Status: Acute Discharge Summary Discharge Physical Exam Allergies: Uncoded Allergies: florescein stain (Allergy, Severe, 04/08/21) Vitals & I&Os Vital Signs Date Time Temp Pulse Resp B/P (MAP) Pulse Ox O2 Delivery O2 Flow Rate FiO2 04/13/21 09:21 Nasal Cannula 2.00 04/13/21 08:00 36.8 69 20 107/73 98 04/08/21 09:58 60 General Appearance: No Apparent Distress, WD/WN Respiratory: Lungs Clear, No Respiratory Distress Cardiovascular: Regular Rate, Rhythm, No Murmur Gastrointestinal: Normal Bowel Sounds, Soft Neurologic/Psychiatric: Alert, Oriented x3 Hospital Course She was admitted to the hospital secondary to acute hypoxic respiratory failure due to COVID-19. He was treated with Decadron and Actemra as he presented feeding high flow oxygen. He did very well and was able to be titrated down from 12 L/min to 2 L prior to discharge. Home oxygen was arranged. He is to fo llow-up with his primary care doctor, Dr. Vargas. It was recommended that he receive his flu vaccination this season as he typically does not. He also indicates that he will receive a Covid vaccine but will wait until closer to his works deadline of May 14. Labs (last 24 hrs) Laboratory Tests 04/13/21 07:00: Sodium Level 134L, Potassium Level 4.5, Chloride Level 98, Carbon Dioxide Level 28, Anion Gap 8, Blood Urea Nitrogen 18, Creatinine 0.97, Estimat Glomerular Filtration Rate 85, BUN/Creatinine Ratio 19, Glucose Level 85, Calcium Level 8.7, Magnesium Level 2.3 Microbiology 04/08/21 MRSA Screen - Final, Complete MRSA not isolated 04/08/21 Blood Culture - Preliminary, Resulted No growth Patient resulted labs reviewed. Pending Labs Laboratory Tests 04/13/21 07:00: Sodium Level 134, Potassium Level 4.5, Chloride Level 98, Carbon Dioxide Level 28, Anion Gap 8, Blood Urea Nitrogen 18, Creatinine 0.97, Estimat Glomerular Filtration Rate 85, BUN/Creatinine Ratio 19, Glucose Level 85, Calcium Level 8.7, Magnesium Level 2.3 Imaging: Reviewed Imaging Report Discussion & Recommendations Discharge Planning: >30 minutes discharge planning Discharge Home Medications: Active Scripts Active Reported Vitamin D3 (Cholecalciferol (Vitamin D3)) 25 Mcg Tablet 25 Mcg PO DAILY Vitamin C (Ascorbic Acid) 500 Mg Capsule 500 Mg PO DAILY Ibuprofen 200 Mg Tablet 400-600 Mg PO Q8H PRN Aspirin EC (Aspirin) 81 Mg Tablet.dr 81 Mg PO DAILY Pulmicort Flexhaler (Budesonide) 180 Mcg Aer.pow.ba 1-2 Puff IH BID PRN Instructions to patient/family Please see electronic discharge instructions given to patient. Problem Qualifiers (1) Respiratory failure: Chronicity: acute Respiratory failure complication: hypoxia Qualified Codes: J96.01 - Acute respiratory failure with hypoxia ANITA LE MD Apr 13, 2021 10:05
[2021-04-13 13:15] VITALS: BP 107/73
== END 2021-04-13 12:50 | disposition home or self-care (01) | DRG 177 ==
LOC: EDUNIT# 08:51 → ER 08:52 → ICU 09:16 → 4TH 04-11 12:34
PROVIDERS: ADMIT Family Medicine; ATTEND Family Medicine
DX: U07.1 COVID-19 (principal); J12.82 Pneumonia due to coronavirus disease 2019; J80 Acute respiratory distress syndrome; J15.9 Unspecified bacterial pneumonia; Z79.82 Long term (current) use of aspirin; Z79.899 Other long term (current) drug therapy; F17.210 Nicotine dependence, cigarettes, uncomplicated; R03.0 Elevated blood-pressure reading, without diagnosis of hypertension
CPT/HCPCS: 36415; 71045; 80048; 80053; 83605; 83735; 84100; 84145; 85007; 85025; 85027; 85379; 85610; 85730; 86141; 87040; 87081; 94640; 94664; 94760; 94761

== ENCOUNTER → 2022-09-03 | Outpatient (CLI) | payer BC ==
[~2022-09-03] MED LIST changes: +ASCO500C17 PO; +ASPI-1238 PO; +CHOL-34 PO; +IBUP-2473 PO
--- NOTE | 2022-09-03 13:53 | Diagnostic Imaging Report ---
INDICATION: Cough. Comparison is made with prior exam of 04/08/2021. FINDINGS: The heart size, mediastinal configuration, and pulmonary vascularity are within normal limits. There is no pleural effusion, pneumothorax, or pneumonia. The osseous structures are unremarkable. IMPRESSION: No acute cardiopulmonary abnormality. Dictated by: Dictated on workstation # [id number]
== END ==
LOC: RAD FS 11:12
PROVIDERS: ATTEND Family Medicine
DX: R05.9 Cough, unspecified (principal)
CPT/HCPCS: 71046